=== PATIENT | female | born 1990 | race Caucasian/White ===

== ENCOUNTER 2019-08-12 06:26 | Inpatient (IN) | payer BC ==
[~2019-08-12 06:26] MED LIST: Bupivacaine 0.25% 10 ML SDV ONE
[2019-08-12] MEDS ORDERED: Sodium Chloride 0.9% 10 ML Syringe FLUSH PRN (07:57)
[2019-08-12] MEDS ORDERED: Nalbuphine 10 MG/ML Syringe IVPUSH PRN (07:57)
[2019-08-12] MEDS ORDERED: Ondansetron 4 MG/2 ML SDV IVPUSH PRN (07:57)
[2019-08-12] MEDS ORDERED: Lidocaine 1% 50 ML MDV INJECT ONE (07:57)
[2019-08-12] MEDS ORDERED: Oxytocin/Lactated Ringers 10 UNIT/1,000 ML BAG IV SCH ×2 (08:00)
[2019-08-12] MEDS: Lactated Ringers 1,000 ML IV SCH ×3 (10:30→14:03)
[2019-08-12] MEDS ORDERED: fentaNYL/Bupivacaine/NS 2 MCG-0.125% 250 ML EPIDUR PRN (10:57)
[2019-08-12] MEDS ORDERED: diphenhydrAMINE 50 MG/ML SDV IVPUSH PRN (10:57)
[2019-08-12] MEDS ORDERED: fentaNYL 100 MCG/2 ML SDV EPIDUR PRN (10:57)
[2019-08-12] MEDS ORDERED: ePHEDrine 50 MG/ML SDV IVPUSH PRN (10:57)
--- NOTE | 2019-08-12 11:45 | PCM.PREANE ---
Preanesthetic Assessment - Anesthesia/Transfusion/Family Hx Anesthesia History: Prior Anesthesia Without Reaction Family History of Anesthesia Reaction, Other: Previous epidural did not work. Hospital in [place]. Transfusion History: Prior Transfusion Without Reaction - Review of Systems General: No Symptoms Pulmonary: No Symptoms Cardiovascular: No Symptoms Gastrointestinal: Other (GERD) Neurological: No Symptoms Other: Reports: None - Physical Assessment Vital Signs: Last Vital Signs Temp 36.6 C 08/12/19 07:57 Pulse Resp 16 08/12/19 07:57 BP 119/61 08/12/19 07:57 Pulse Ox Height: 1.6 m Weight: 76.657 kg ASA Class: 2 Mental Status: Alert & Oriented x3 Airway Class: Mallampati = 2 Dentition: Reports: Normal Dentition Thyro-Mental Finger Breadths: 3 Mouth Opening Finger Breadths: 3 ROM/Head Extension: Full Lungs: Clear to Auscultation, Normal Respiratory Effort Cardiovascular: Regular Rate, Regular Rhythm - Lab Values: Laboratory Last Values WBC 26.18 K/mm3 (3.98-10.04) H 08/12/19 08:21 RBC 3.54 M/mm3 (3.98-5.22) L 08/12/19 08:21 Hgb 9.8 gm/dl (11.2-15.7) L 08/12/19 08:21 Hct 30.8 % (34.1-44.9) L 08/12/19 08:21 MCV 87.0 fl (79.4-94.8) 08/12/19 08:21 MCH 27.7 pg (25.6-32.2) 08/12/19 08:21 MCHC 31.8 g/dl (32.2-35.5) L 08/12/19 08:21 RDW Std Deviation 40.6 fL (36.4-46.3) 08/12/19 08:21 Plt Count 517 K/mm3 (182-369) H 08/12/19 08:21 MPV 9.9 fl (9.4-12.3) 08/12/19 08:21 Neut % (Auto) 69.0 % (34.0-71.1) 08/12/19 08:21 Lymph % (Auto) 20.1 % (19.3-51.7) 08/12/19 08:21 [place] % (Auto) 9.0 % (4.7-12.5) 08/12/19 08:21 Eos % (Auto) 0.5 (0.7-5.8) L 08/12/19 08:21 Baso % (Auto) 0.2 % (0.1-1.2) 08/12/19 08:21 Neut # (Auto) 18.06 K/mm3 (1.56-6.13) H 08/12/19 08:21 Lymph # (Auto) 5.27 K/mm3 (1.18-3.74) H 08/12/19 08:21 [place] # (Auto) 2.36 K/mm3 (0.24-0.36) H 08/12/19 08:21 Eos # (Auto) 0.12 K/mm3 (0.04-0.36) 08/12/19 08:21 Baso # (Auto) 0.06 K/mm3 (0.01-0.08) 08/12/19 08:21 Manual Slide Review Abnormal smear 08/12/19 08:21 Blood Type O POSITIVE 08/12/19 08:21 Gel Antibody Screen Negative 08/12/19 08:21 - Allergies Allergies/Adverse Reactions: Allergies Allergy/AdvReac Type Severity Reaction Status Date / Time clavulanic acid Allergy Unknown Swelling Verified 07/26/19 10:16 [From Augmentin] - Acknowledgements Anesthesia Type Planned: Epidural Pt an Appropriate Candidate for the Planned Anesthesia: Yes Alternatives and Risks of Anesthesia Discussed w Pt/Guardian: Yes Pt/Guardian Understands and Agrees with Anesthesia Plan: Yes PreAnesthesia Questionnaire 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: - SUBSTANCE USE Smoking Status *Q: Current Every Day Smoker Tobacco Use Within Last Twelve Months: Cigarettes Second Hand Smoke Exposure: Yes Recreational Drug Use History: No - HOME MEDS Home Medications: Home Meds Ondansetron [Zofran] 4 mg PO Q6H PRN 08/12/19 [History] - CURRENT (IN HOUSE) MEDS Current Meds: Current Medications Diphenhydramine HCl (Benadryl) 25 mg IVPUSH Q6H PRN PRN Reason: pruritis Ephedrine Sulfate (Ephedrine Sulfate) 5 mg IVPUSH ASDIRECTED PRN PRN Reason: Hypotension Fentanyl (Sublimaze) 100 mcg EPIDUR Q3H PRN PRN Reason: Pain Fentanyl/Bupivacaine HCl (Fentanyl/Bupivacaine/Ns 2 Mcg-0.125% 250 Ml) 250 ml EPIDUR CONTINUOUS PRN PRN Reason: Pain Lactated Ringer's (Ringers, Lactated) 1,000 mls @ 100 mls/hr IV ASDIRECTED CRAIG Last Admin: 08/12/19 11:09 Dose: 100 mls/hr Oxytocin/Lactated Ringer's (Pitocin In Lr 10 Units/1,000 Ml) 10 unit in 1,000 mls @ 12 mls/hr IV TITRATE CRAIG; Protocol Oxytocin/Lactated Ringer's (Pitocin In Lr 10 Units/1,000 Ml) 10 unit in 1,000 mls @ 100 mls/hr IV .CONTINUOUS CRAIG; Protocol Nalbuphine HCl (Nubain) 10 mg IVPUSH Q2H PRN PRN Reason: Pain Ondansetron HCl (Zofran) 4 mg IVPUSH Q4H PRN PRN Reason: Nausea/Vomiting Sodium Chloride (Saline Flush) 10 ml FLUSH ASDIRECTED PRN PRN Reason: Keep Vein Open Discontinued Medications Lidocaine HCl (Xylocaine 1%) 50 ml INJECT ONETIME ONE Stop: 08/12/19 07:58
[2019-08-12] MEDS ORDERED: Docusate Sodium 100 MG Cap PO PRN (18:41)
[2019-08-12] MEDS ORDERED: Acetaminophen 325 MG Tab PO PRN (18:41)
[2019-08-12] MEDS ORDERED: Ibuprofen 600 MG Tab PO PRN (18:41)
[2019-08-12] MEDS ORDERED: Benzocaine/Menthol 20%-0.5% Spray 56 GM Canister TOP PRN (18:41)
[2019-08-12] MEDS ORDERED: Witch Hazel Medicated Pads 40/Jar TOP PRN (18:41)
--- NOTE | 2019-08-12 20:29 | PCM.LDHP ---
L&D History of Present Illness - General Date of Service: 08/12/19 Admit Problem/Dx: Admission Diagnosis/Problem Admission Diagnosis/Problem Normal Source of Information: Patient History Limitations: Reports: No Limitations - History of Present Illness Introduction:: 08/12/19 07:39 Roxana is a 29-year-old 3 para [birth year] white female who is evaluated in labor and delivery for complaints of SROM, low back pain and some cramping abdominally. She is presently at 37 weeks gestational age with an SHEA of 2019. She has had only 1 visit during the course of this and that was with Dr. Vaughan at [facility] in [place]. She reports good activity. Source of Information: Patient History Limitations: Reports: No Limitations - History of Present Illness Introduction:: Roxana is a 29-year-old 3 para [birth year] white female who is evaluated in labor and delivery for complaints of SROM, low back pain and some cramping abdominally. She is presently at 37 weeks gestational age with an SHEA of 2019. She has had only 1 visit during the course of this and that was with Dr. Vaughan at [facility] in [place]. She reports good activity. 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 Her 2 previous deliveries occurred in [place]. She delivered a 39-0/7 week or in 2014female vaginal delivery. Second child born 2016 at 36-0/7 weeks gestational agemale infantspontaneous vaginal delivery. Her last menstrual was uncertain. She is dated by an early ultrasound done in [place] by her history. Records are somewhat incomplete. Care has been only 1 visit. Laboratory testing: Was O+ with negative antibody screen. Her blood type shows negative results. Syphilis IgG and IgM nonreactive. Hepatitis B surface antigen nonreactive. Her hemoglobin on 07/07/2019 was 10.3 g/dL. Platelets are 347. One- hour GTT was 125. Group B strep screen was was negative. Past medical history: 1. Vaginal delivery 2 2. 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 Past surgical history: Unremarkable Family history: Father is alive and well but has complications of adult onset diabetes. Mother is alive and well. Paternal grandmother is alive and reasonably healthy. Paternal grandfather is secondary to heart attack in his 60s. Maternal grandmother is alive and in generally good health. Paternal grandfather is secondary to complications that are related to smoking. No anesthesia, bleeding, blood clotting problems noted. Social history: Patient is . She is recently moved here from [place]. 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 She does not use any significant most alcohol, drugs but does smoke one half pack cigarettes per day. She is a stay-at -home mom. Review of systems: In general patient has no complaints. Skin: Negative Lungs: No infectious symptoms or shortness of breath Cardiovascular: No chest pain or exercise intolerance GI: Negative : Tractions as noted above. Musculoskeletal: Negative Neurological: Negative In general the patient is well-developed, well-nourished, pleasant female of stated age in no acute distress. Skin is warm dry without lesions. HEENT, neck and back within normal limits. Lungs are clear with good breath sounds in all lung pagan. Cardiovascular exam shows regular and rhythm without murmurs. Abdomen is protuberant with fundal height consistent with term . Vertex presentation by Elpidio. Genital cervical evaluation shows her to be 4 cm dilated, 90% effaced, -2 station, cephalic presentation, moist with amniotic fluid which appears clear. Extremities and neurological exam are grossly within normal limits. monitoring shows reactive NST. Patient is having what appears to be in labor with contractions every 3-5 minutes. - Related Data Allergies/Adverse Reactions: Allergies Allergy/AdvReac Type Severity Reaction Status Date / Time clavulanic acid Allergy Unknown Swelling Verified 07/26/19 10:16 [From Augmentin] H&P Review of Systems - Review of Systems: Review Of Systems: See Below L&D Exam - Exam Exam: See Below - Vital Signs Vital Signs: Last Vital Signs Temp 36.8 C 08/09/19 18: Pulse 97 08/09/19 18:26 Resp 15 08/09/19 18:26 BP 122/71 08/09/19 18:26 Pulse Ox Weight: 76.204 kg - Patient Data Niraj Results Last 24 hrs: Microbiology 08/09/19 18:00 Urine Culture - Final Urine, Clean Catch MIXED SONIA SUGGESTIVE OF CONTAMINATION. Problem List Initiated/Reviewed/Updated: Yes Assessment/Plan Comment:: Assessment: 1. 37 week intrauterine , SROM with resultant clear fluid and now in early labor with change in cervical dilation. 2. Risk factors for the include history of smoking one half pack per day, infrequent care, History of labor. 3. Group B strep screen is negative. 4. Patient desiring epidural for labor analgesia. 5. Patient plans to breast-feed. Plan: 1. anticipated normal spontaneous vaginal delivery. 2. Epidural when necessary for pain control in labor delivery 3. RPR and CBC upon admission 4. Routine labor care. 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: Social & Family History - Family History Family Medical History: Noncontributory - Tobacco Use Smoking Status *Q: Current Every Day Smoker Years of Tobacco use: 10 Packs/Tins Daily: 0.5 Used Tobacco, but Quit: No Second Hand Smoke Exposure: Yes - Caffeine Use Caffeine Use: Reports: Coffee, Soda - Recreational Drug Use Recreational Drug Use: No H&P Review of Systems - Review of Systems: Review Of Systems: See Below L&D Exam - Exam Exam: See Below - Vital Signs Vital Signs: Last Vital Signs Temp 36.6 C 08/12/19 07:57 Pulse Resp 16 08/12/19 07:57 BP 119/61 08/12/19 07:57 Pulse Ox Weight: 76.657 kg - Patient Data Lab Results Last 24 hrs: Laboratory Results - last 24 hr 08/12/19 08/12/19 Range/Units 08:21 08:21 WBC 26.18 H (3.98-10.04) K/mm3 RBC 3.54 L (3.98-5.22) M/mm3 Hgb 9.8 L (11.2-15.7) gm/dl Hct 30.8 L (34.1-44.9) % MCV 87.0 (79.4-94.8) fl MCH 27.7 (25.6-32.2) pg MCHC 31.8 L (32.2-35.5) g/dl RDW Std Deviation 40.6 (36.4-46.3) fL Plt Count 517 H (182-369) K/mm3 MPV 9.9 (9.4-12.3) fl Neut % (Auto) 69.0 (34.0-71.1) % Lymph % (Auto) 20.1 (19.3-51.7) % [place] % (Auto) 9.0 (4.7-12.5) % Eos % (Auto) 0.5 L (0.7-5.8) Baso % (Auto) 0.2 (0.1-1.2) % Neut # (Auto) 18.06 H (1.56-6.13) K/mm3 Lymph # (Auto) 5.27 H (1.18-3.74) K/mm3 [place] # (Auto) 2.36 H (0.24-0.36) K/mm3 Eos # (Auto) 0.12 (0.04-0.36) K/mm3 Baso # (Auto) 0.06 (0.01-0.08) K/mm3 Manual Slide Review Abnormal smear Blood Type O POSITIVE Gel Antibody Screen Negative Result Diagrams: 08/12/19 08:21 Problem List Initiated/Reviewed/Updated: Yes Orders Last 24hrs: Active Orders 24 hr Category Date Time Status Activity as Tolerated [RC] PER UNIT ROUTINE Care 08/12/19 18:41 Active Heart Tones [RC] ASDIRECTED Care 08/12/19 07:57 Inactive Notify Provider [RC] ASDIRECTED Care 08/12/19 10:57 Inactive Pump Management, Intrathecal [RC] ASDIRECTED Care 08/12/19 07:58 Inactive Vital Signs [RC] ASDIRECTED Care 08/12/19 18:41 Active Regular Diet [DIET] Diet 08/12/19 Dinner Active RAPID PLASMA REAGIN,RPR [CHEM] Routine Lab 08/12/19 08:21 Received Acetaminophen [Tylenol] Med 08/12/19 18:41 Active 650 mg PO Q4H PRN Benzocaine/Menthol [Dermoplast Pain Relief [place]] Med 08/12/19 18:41 Active See Dose Instructions TOP ASDIRECTED PRN Docusate Sodium [Colace] Med 08/12/19 18:41 Active 100 mg PO BID PRN Ibuprofen [Motrin] Med 08/12/19 18:41 Active 600 mg PO Q4H PRN Witch Carley [Tucks] Med 08/12/19 18:41 Active 1 pad TOP ASDIRECTED PRN Assess Lochia [WOMSER] Per Unit Routine Ot 08/12/19 18:41 Ordered Assess Uterine Involution [WOMSER] Per Unit Routine Ot 08/12/19 18:41 Ordered Breast Pump [WOMSER] Per Unit Routine Ot 08/12/19 18:41 Ordered Heat Therapy [OM.PC] PRN Ot 08/12/19 18:45 Ordered Heat Therapy [OM.PC] PRN Ot 08/13/19 18:45 Ordered Ice Therapy [OM.PC] Per Unit Routine Ot 08/12/19 18:41 Ordered Medication Administration Instruction [OM.PC] Routine Ot 08/12/19 18:41 Ordered Perineal Care [OM.PC] Per Unit Routine Ot 08/12/19 18:41 Ordered Sitz Bath [OM.PC] Per Unit Routine Ot 08/12/19 18:41 Ordered Resuscitation Status Routine Resus Stat 08/12/19 07:57 Ordered Medication Orders Acetaminophen (Tylenol) 650 mg PO Q4H PRN PRN Reason: mild pain or fever Benzocaine/Menthol (Dermoplast Pain Relief [place]) 0 gm TOP ASDIRECTED PRN PRN Reason: Perineal Comfort Measure Docusate Sodium (Colace) 100 mg PO BID PRN PRN Reason: Constipation Ibuprofen (Motrin) 600 mg PO Q4H PRN PRN Reason: Mild pain or fever Witch Carley (Tucks) 1 pad TOP ASDIRECTED PRN PRN Reason: Pain Assessment/Plan Comment:: Assessment: 1. 37 week intrauterine , SROM with resultant clear fluid and now in early labor with change in cervical dilation. 2. Risk factors for the include history of smoking one half pack per day, infrequent care, History of labor. 3. Group B strep screen is negative. 4. Patient desiring epidural for labor analgesia. 5. Patient plans to breast-feed. Plan: 1. anticipated normal spontaneous vaginal delivery. 2. Epidural when necessary for pain control in labor delivery 3. RPR and CBC upon admission 4. Routine labor care.
--- NOTE | 2019-08-13 06:35 | PCM48HPAN ---
Post Anesthesia Note - EVALUATION WITHIN 48HRS OF ANESTHETIC Vital Signs in Normal Range: Yes Patient Participated in Evaluation: Yes Respiratory Function Stable: Yes Airway Patent: Yes Cardiovascular Function Stable: Yes Hydration Status Stable: Yes Pain Control Satisfactory: Yes Nausea and Vomiting Control Satisfactory: Yes Mental Status Recovered: Yes Vital Signs: Last Vital Signs Temp 36.6 C 08/12/19 07:57 Pulse Resp 16 08/12/19 07:57 BP 119/61 08/12/19 07:57 Pulse Ox
--- NOTE | 2019-08-13 13:39 | PCM.DCSUM1 ---
Discharge Summary - Hospital Course Free Text/Narrative:: Roxana is a 29-year-old 3 para [birth year]14/[birth year] white female who is evaluated in labor and delivery for complaints of SROM, low back pain and some cramping abdominally. She is presently at 37 weeks gestational age with an SHEA of 2019. She has had only 1 visit during the course of this and that was with Dr. Vaughan at [facility] in [place]. She reports good activity. Delivered viable, herrera, male on the evening of 2018. No stitches are noted. Patient was done well. patient is done well. She is nursing when she gets home. She is bottlefeeding at the present time. Minimal lochia. Voiding well. Ready for discharge.: Good Diagnosis: Stroke: No - Discharge Data Discharge Date: 08/13/19 Discharge Disposition: Home, Self-Care 01 Condition: Good - Referral to Home Health Primary Care Physician: PCP Not In Area - Patient Instructions Diet: Regular Diet as Tolerated (Nursing diet with increase calories and calcium is recommended) Activity: As Tolerated (No intercourse or tampons until bleeding resolves) Driving: May Drive Today Showering/Bathing: May Shower (may take a bath) Notify Provider of: Fever, Increased Pain, Swelling and Redness, Nausea and/or Vomiting - Discharge Plan Home Medications: Home Meds Acetaminophen [Tylenol] 650 mg PO Q4H PRN tablet 08/13/19 [Rx] Ibuprofen [Motrin] 600 mg PO Q4H PRN tablet 08/13/19 [Rx] Patient Handouts: Steps to Quit Smoking Referrals: Yovany Lacey MD [Physician] - (Return to clinicDr. Lacey2 weeks.) - Discharge Summary/Plan Comment DC Time >30 min.: No Discharge Summary/Plan Comment: Discharge instructions: 1. Discharge home 2. Diet, activity and follow-up discussed with patient. Recommend nursing diet with increased calories and calcium. 3. Precautions given concern increased pain, bleeding, temperature, signs/ symptoms of DVT/PE. 4. Medications per home medication was printed, discussed with and given to the patient. 5. Return to clinic-Dr. Lacey[facility] in 2 weeks. Diagnosis: Term -delivered Condition: Good - Patient Data Vitals - Most Recent: Last Vital Signs Temp 36.4 C 08/13/19 08:23 Pulse 89 08/13/19 08:23 Resp 14 08/13/19 08:23 BP 101/69 08/13/19 08:23 Pulse Ox 99 08/13/19 08:23 Weight - Most Recent: 76.657 kg I&O - Last 24 hours: Intake & Output 08/12/19 08/13/19 08/13/19 22:59 06:59 14:59 Intake Total 1800 360 Balance 1800 360 Lab Results - Last 24 hrs: Laboratory Results - last 24 hr 08/12/19 Range/Units 08:21 RPR Non-reactive (NONREACTIVE) Med Orders - Current: Current Medications Acetaminophen (Tylenol) 650 mg PO Q4H PRN PRN Reason: mild pain or fever Last Admin: 08/13/19 08:30 Dose: 650 mg Benzocaine/Menthol (Dermoplast Pain Relief [place]) 0 gm TOP ASDIRECTED PRN PRN Reason: Perineal Comfort Measure Docusate Sodium (Colace) 100 mg PO BID PRN PRN Reason: Constipation Ibuprofen (Motrin) 600 mg PO Q4H PRN PRN Reason: Mild pain or fever Witch Car[place] (Tucks) 1 pad TOP ASDIRECTED PRN PRN Reason: Pain Discontinued Medications Bupivacaine HCl (Sensorcaine-Mpf 0.25%) 10 ml .ROUTE .STK-MED ONE Stop: 08/12/19 00:01 Diphenhydramine HCl (Benadryl) 25 mg IVPUSH Q6H PRN PRN Reason: pruritis Ephedrine Sulfate (Ephedrine Sulfate) 5 mg IVPUSH ASDIRECTED PRN PRN Reason: Hypotension Fentanyl (Sublimaze) 100 mcg EPIDUR Q3H PRN PRN Reason: Pain Last Admin: 08/12/19 11:46 Dose: 100 mcg Fentanyl/Bupivacaine HCl (Fentanyl/Bupivacaine/Ns 2 Mcg-0.125% 250 Ml) 250 ml EPIDUR CONTINUOUS PRN PRN Reason: Pain Last Admin: 08/12/19 11:46 Dose: 250 ml Lactated Ringer's (Ringers, Lactated) 1,000 mls @ 100 mls/hr IV ASDIRECTED CRAIG Last Admin: 08/12/19 14:03 Dose: 100 mls/hr Oxytocin/Lactated Ringer's (Pitocin In Lr 10 Units/1,000 Ml) 10 unit in 1,000 mls @ 12 mls/hr IV TITRATE CRAIG; Protocol Last Titration: 08/12/19 18:01 Dose: 500 mls/hr Oxytocin/Lactated Ringer's (Pitocin In Lr 10 Units/1,000 Ml) 10 unit in 1,000 mls @ 100 mls/hr IV .CONTINUOUS CRAIG; Protocol Lidocaine HCl (Xylocaine 1%) 50 ml INJECT ONETIME ONE Stop: 08/12/19 07:58 Last Admin: 08/13/19 05:14 Dose: Not Given Nalbuphine HCl (Nubain) 10 mg IVPUSH Q2H PRN PRN Reason: Pain Ondansetron HCl (Zofran) 4 mg IVPUSH Q4H PRN PRN Reason: Nausea/Vomiting Sodium Chloride (Saline Flush) 10 ml FLUSH ASDIRECTED PRN PRN Reason: Keep Vein Open
[2019-08-13] MEDS ORDERED: Measles, Mumps & Rubella Vaccine 0.5 ML SDV SUBCUT ONE (19:08)
--- NOTE | 2019-08-20 08:19 | PCM.SN ---
- Free Text/Narrative Note: Delivery note: Roxana is a 29-year-old 3 now para 3003 white female was admitted on the a.m. of 08/12/2019 at 37-0/7 weeks gestational age with spontaneous rupture membranes with resultant clear amniotic fluid. She was found to be in active labor. She progressed naturally and quickly. At 0601 hrs. on 08/12/2019 patient delivered a viable, herrera, male infant with Apgars of 7 and 9, a weight of 3280 g (7 pounds 3.7 ounces) and a length of 20.5 inches in an occiput anterior position over an intact perineum. Pitocin was increased to 500 mL an hour to facilitate increased uterine tone and decrease likelihood of bleeding. Baby was placed on mom's abdomen. The cord was allowed to pulsate 2 minutes and then was clamped 2 and cut. Umbilical cord had 3 vessels. Cord blood was obtained. The placenta delivered at 0604 hrs. It delivered in a [place] presentation, appeared intact and complete and was discarded per patient request. Estimated blood loss was 200 mL. The patient plans to breast-feed after she is discharged home. Condition: Good
== END 2019-08-13 19:19 | disposition home or self-care (01) | DRG 560 ==
LOC: JD.OBCHECK 06:26 → JD.OB 08:16 → OBSVTOIN 18:01 → JD.OB 18:02
PROVIDERS: ADMIT Obstetrics & Gynecology; ATTEND Obstetrics & Gynecology
PROC: 10E0XZZ Delivery of Products of Conception, External Approach (ICD-10-PCS; 2019-08-12)
PROC: 3E0234Z Introduction of Serum, Toxoid and Vaccine into Muscle, Percutaneous Approach (ICD-10-PCS; principal; 2019-08-13)
DX: O99.334 Smoking (tobacco) complicating childbirth (principal); M54.5 Low back pain; F17.210 Nicotine dependence, cigarettes, uncomplicated; Z3A.37 37 weeks gestation of pregnancy; Z37.0 Single live birth; Z88.1 Allergy status to other antibiotic agents; Z79.899 Other long term (current) drug therapy; Z23 Encounter for immunization
CPT/HCPCS: 01967; 36415; 51702; 59025; 59409; 85025; 86592; 86850; 86900; 86901; 90471; 90707; A9270-GY; J2590; J3010; J3490; J7120